=== PATIENT | male | born 1955 | race Hispanic/Latino ===

== ENCOUNTER 2016-09-04 10:55 | Emergency (ER) | payer MEDICARE, MEDICAID ==
[2016-09-04 10:56] VITALS: BMI 20.4
[2016-09-04 11:33] VITALS: RESP 18; TEMP 98.3; O2SAT 98
--- NOTE | 2016-09-04 11:54 | ED PDOC ---
Arrival/HPI - General Chief Complaint: Trauma Time Seen by Provider: 09/04/16 11:44 Historian: Patient - History of Present Illness Narrative History of Present Illness (Text): 09/04/16 11:40 A 60 year old male presents to the emergency department for evaluation after a head trauma. Patient reports last week he accidental hit is head on a metal disc and since has been experiencing intermittent headaches and nausea. Patient denies any loss of consciousness, numbness, weakness, or any other complaints at this time. PMD: Dr. Lopez Time/Duration: 1 week Symptom Onset: Sudden Symptom Course: Intermittent Quality: Other Activities at Onset: Rest Context: Home Past Medical History - Provider Review Nursing Documentation Reviewed: Yes - Infectious Disease Hx of Infectious Diseases: None - Tetanus Immunization Tetanus Immunization: Unknown - Past Medical History Past Medical History: No Previous - Renal Hx Renal Disorder: No - Psychiatric Hx Depression: No Hx Emotional Abuse: No Hx Physical Abuse: No Hx Substance Use: No - Past Surgical History Past Surgical History: No Previous - Anesthesia Hx Anesthesia: No Hx Anesthesia Reactions: No Hx Malignant Hyperthermia: No - Suicidal Assessment Feels Threatened In Home Enviroment: No Family/Social History - Physician Review Nursing Documentation Reviewed: Yes Family/Social History: Unknown Family HX Smoking Status: Heavy Smoker > 10 Cigarettes Daily Hx Alcohol Use: Yes Hx Substance Use: No Hx Substance Use Treatment: No Allergies/Home Meds Allergies/Adverse Reactions: Allergies No Known Allergies Allergy (Verified 11/01/14 09:33) Physical Exam - Physical Exam Narrative Physical Exam (Text): - Review of Systems Constitutional: Head Trauma. absent: Fatigue, Weight Change, Fevers Eyes: Normal ENT: Normal Respiratory: Normal absent: SOB, Cough, Sputum Cardiovascular: Normal absent: Chest pain, Palpitations, Syncope Gastrointestinal: Nausea. absent: Abdominal pain, Diarrhea, Vomiting Genitourinary: Normal. absent: Dysuria, Frequency, Hematuria Musculoskeletal: Normal. absent: Arthralgias, Back Pain, Neck Pain Skin: Normal Neurological: Headaches. absent: Focal Weakness Endocrine: Normal Hemo/Lymphatic: Normal Psychiatric: Normal - Physical exam Patient appears age appropriate, speaking full sentences without difficulty - Systems Exam Head: Present: Atraumatic, Normocephalic, Bilateral temporal pulses present. Pupils: Present: PERRL Extraocular Muscles: Present: EOMI Conjunctiva: Present: Normal Mouth: Present: Moist Mucous Membranes Neck: Present: Normal Range of Motion. No: MIDLINE TENDERNESS, Paraspinal Tenderness Respiratory/Chest: Present: Clear to Auscultation, Good Air Exchange. No: Respiratory Distress, Accessory Muscle Use, Tachypneic Cardiovascular: Present: Regular Rate and Rhythm, Normal S1, S2, Peripheral Pulses Present. No: Murmurs Abdomen: Present: Normal Bowel Sounds, No: Tenderness, Peritoneal Signs, Rebound, Guarding, Distention Back: Present: Normal Inspection. No: Midline Tenderness, Paraspinal Tenderness Upper Extremity: Present: Normal Inspection. No: Cyanosis, Edema Lower Extremity: Present: Normal Inspection. No: Edema Neurological: Present: GCS=15, Speech Normal, cranial nerves II through XII fully intact with no cerebellar abnormality, neuro-sensory fully intact. No focal neurological deficits. Skin: Present: Warm, Dry, Normal Color. No: Rashes Lymphatic: Present: OX3, NI, NC Psychiatric: Present: Alert, Oriented x 3, Normal Insight, Normal Concentration Vital Signs Reviewed: Yes Vital Signs Temp Pulse Resp BP Pulse Ox 09/04/16 11:27 98.3 F 68 18 130/84 98 Temperature: Afebrile Blood Pressure: Normal Pulse: Regular Respiratory Rate: Normal Appearance: Positive for: Well-Appearing, Non-Toxic, Comfortable Pain Distress: None Mental Status: Positive for: Alert and Oriented X 3 Medical Decision Making ED Course and Treatment: 09/04/16 11:40 Impression: A 60 year old male with intermittent headache and nausea after hitting his head. Patient physical examination reveal no acute findings. Patient has no neurological focal deficits. Differential Diagnosis include but are not limited to: post concussion symptoms Plan: -- Head CT -- Tylenol -- Reassess and disposition Progress Notes: 09/04/16 12:[address]: Creator : Bean Escobedo IMPRESSION: No evidence of acute intracranial hemorrhage mass effect or midline shift. Mild right maxillary sinus mucosal thickening. 09/04/16 12:50 on reevaluation, patient has no headache, no nausea,no focal neurological deficits pt states he feels comfortable being dc'd home with outpatient neurology follow up Pt states he understands to return to the ER right away for new or worsening symptoms or for inability to f/u with PMD or specialist as instructed. Patient states that he fully agrees with and understands discharge instructions. States that he agrees with the plan and disposition. Verbalized and repeated discharge instructions and plan. I have given the patient opportunity to ask any additional questions. - RAD Interpretation Radiology Orders: 09/04/16 11:45 HEAD W/O CONTRAST [CT] Stat - Medication Orders Current Medication Orders: Discontinued Medications Acetaminophen (Tylenol 325mg Tab) 975 mg PO STAT STA Stop: 09/04/16 11:45 Last Admin: 09/04/16 12:03 Dose: 975 mg - Scribe Statement The provider has reviewed the documentation as recorded by the Giovannaibe Jennifer Sepulveda Provider Scribe Attestation: All medical record entries made by the Scribe were at my direction and personally dictated by me. I have reviewed the chart and agree that the record accurately reflects my personal performance of the history, physical exam, medical decision making, and the department course for this patient. I have also personally directed, reviewed, and agree with the discharge instructions and disposition. Disposition/Present on Arrival - Present on Arrival Any Indicators Present on Arrival: No History of DVT/PE: No History of Uncontrolled Diabetes: No Urinary Catheter: No History of Decub. Ulcer: No History Surgical Site Infection Following: None - Disposition Have Diagnosis and Disposition been Completed?: Yes Diagnosis: Headache Disposition: HOME/ ROUTINE Disposition Time: 12:52 Patient Plan: Discharge Condition: GOOD Discharge Instructions (ExitCare): General Headache (ED), Concussion (ED), Post Concussion Syndrome (ED) Additional Instructions: PLEASE RETURN TO THE EMERGENCY DEPARTMENT FOR NEW OR WORSENING SYMPTOMS. RETURN RIGHT AWAY IF YOU CANNOT FOLLOW UP WITH YOUR PRIMARY CARE DOCTOR, CLINIC, OR SPECIALIST IN 1-2 DAYS. Prescriptions: Acetaminophen [Tylenol Extra Strength] 500 mg PO Q6 PRN #15 tablet PRN Reason: Pain, Moderate (4-7) Ondansetron [Zofran Odt] 4 mg PO Q6 PRN #14 odt PRN Reason: Nausea/Vomiting Referrals: Adrian Lopez Jr., MD [Primary Care Provider] - Follow up with primary Zac Whitmore MD [Staff Provider] - Follow up with primary Sathya Whitmore MD [Staff Provider] - Follow up with primary
--- NOTE | 2016-09-04 12:23 | CT ---
PROCEDURE: CT HEAD WITHOUT CONTRAST. HISTORY: [place], injury 1 week ago COMPARISON: None available. TECHNIQUE: Axial computed tomography images were obtained through the head/brain without intravenous contrast. Radiation dose: Total exam DLP = 801.61 mGy-cm. This CT exam was performed using one or more of the following dose reduction techniques: Automated exposure control, adjustment of the mA and/or kV according to patient size, and/or use of iterative reconstruction technique. FINDINGS: HEMORRHAGE: No intracranial hemorrhage. BRAIN: No mass effect or edema. No atrophy or chronic microvascular ischemic changes. VENTRICLES: Unremarkable. No hydrocephalus. CALVARIUM: Unremarkable. PARANASAL SINUSES: Mild mucosal thickening at the right maxillary sinus. MASTOID AIR CELLS: Unremarkable as visualized. No inflammatory changes. OTHER FINDINGS: None. IMPRESSION: No evidence of acute intracranial hemorrhage mass effect or midline shift. Mild right maxillary sinus mucosal thickening.
[2016-09-04 13:26] VITALS: BP 124/78; PULSE 88
== END 2016-09-04 13:27 | disposition home or self-care (01) ==
LOC: ED 10:55
DX: R51 Headache (principal)

== ENCOUNTER 2016-12-10 12:21 | Emergency (ER) | payer MEDICARE, MEDICAID ==
[2016-12-10 12:21] VITALS: BMI 20.4
[2016-12-10 12:29] VITALS: TEMP 98; O2SAT 97
--- NOTE | 2016-12-10 12:47 | ED PDOC ---
Arrival/HPI - General Chief Complaint: Headache Time Seen by Provider: 12/10/16 12:21 Historian: Patient - History of Present Illness Narrative History of Present Illness (Text): 12/10/16 12:54 A 60 year old male with no significant past medical history, presents to the Emergency department with two month duration headache. He states that he sustained a head injury against his satellite receive at his house 3 months ago , and he came to the Emergency department for further evaluation. He notes that the Head CT report was negative. He states that he wants a repeat CT scan, without labs to make sure there are no changes from the time he sustained the injury. The patient denies fevers, chills, nausea, vomiting, diarrhea, abdominal pain, chest pain, shortness of breath, dizziness or any other complaint PMD: Dr. 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) - Renal Hx Renal Disorder: No - Endocrine/Metabolic Hx Endocrine Disorders: No - Hematological/Oncological Hx Blood Disorders: No - Integumentary Hx Dermatological Disorder: No - Musculoskeletal/Rheumatological Hx Musculoskeletal Disorders: No - Gastrointestinal Hx Gastrointestinal Disorders: No - Genitourinary/Gynecological Hx Genitourinary Disorders: No - Psychiatric Hx Psychophysiologic Disorder: No Hx Substance Use: No - Past Surgical History Past Surgical History: No Previous - Surgical History Hx Eye Surgery: Yes (left eye) Other/Comment: testicular surgery as a child - Anesthesia Hx Anesthesia: No Hx Anesthesia Reactions: No Hx Malignant Hyperthermia: No - Suicidal Assessment Feels Threatened In Home Enviroment: No Family/Social History - Physician Review Nursing Documentation Reviewed: Yes Family/Social History: No Known Family HX Smoking Status: Heavy Smoker > 10 Cigarettes Daily Hx Alcohol Use: Yes Frequency of alcohol use: Socially Hx Substance Use: No Hx Substance Use Treatment: No Allergies/Home Meds Allergies/Adverse Reactions: Allergies No Known Allergies Allergy (Verified 12/10/16 12:26) Home Medications: Home Meds Medication Instructions Recorded Confirmed Ibuprofen [Motrin Tab] 800 mg PO PRN PRN 12/10/16 12/10/16 Review of Systems - Physician Review All systems were reviewed & negative as marked: Yes - Review of Systems Constitutional: absent: Fevers, Night Sweats Respiratory: absent: SOB, Cough Cardiovascular: absent: Chest Pain Gastrointestinal: absent: Abdominal Pain, Diarrhea, Nausea, Vomiting Neurological: Headache (2- month duration). absent: Dizziness Physical Exam Vital Signs Temp Pulse Resp BP Pulse Ox 12/10/16 14:10 60 18 128/81 97 12/10/16 12:25 98 F 68 16 159/88 H 97 Temperature: Afebrile Blood Pressure: Hypertensive Pulse: Regular Respiratory Rate: Normal Appearance: Positive for: Well-Appearing, Non-Toxic, Comfortable Pain Distress: None Mental Status: Positive for: Alert and Oriented X 3 - Systems Exam Head: Present: Atraumatic, Normocephalic Pupils: Present: PERRL Extroacular Muscles: Present: EOMI Conjunctiva: Present: Normal Mouth: Present: Moist Mucous Membranes Neck: Present: Normal Range of Motion Respiratory/Chest: Present: Clear to Auscultation, Good Air Exchange. No: Respiratory Distress, Accessory Muscle Use Cardiovascular: Present: Regular Rate and Rhythm, Normal S1, S2. No: Murmurs Abdomen: Present: Normal Bowel Sounds. No: Tenderness, Distention, Peritoneal Signs Back: Present: Normal Inspection Upper Extremity: Present: Normal Inspection. No: Cyanosis, Edema Lower Extremity: Present: Normal Inspection. No: Edema Neurological: Present: GCS=15, CN II-XII Intact, Speech Normal Skin: Present: Warm, Dry, Normal Color. No: Rashes Psychiatric: Present: Alert, Oriented x 3, Normal Insight, Normal Concentration Medical Decision Making ED Course and Treatment: 12/10/16 13:01 Impression: A 60 year old male with two month duration headache, and requests a repeat Head CT scan. Plan: -- Head CT -- Reassess and disposition Prior Visits: Head injury with associated headache and nausea on 09/04/16. Progress Notes: 12/10/16 13:37: Patient observed, in a bed, drinking coffee, and in no acute distress. CT HEAD WITHOUT CONTRAST Report Date : 12/10/2016 13:53:52 Dictator : Bin Boyd MD IMPRESSION: No acute intracranial abnormalities. No significant findings to account for the clinical presentation. No significant interval change compared to the prior examination(s). 12/10/16 15:03 pt remains neuro intac. observed in er, ambulatory in nad. refuses labs. advised to f/u outpt with neuro. - RAD Interpretation Radiology Orders: 12/10/16 12:53 HEAD W/O CONTRAST [CT] Stat - Medication Orders Current Medication Orders: Discontinued Medications Diphenhydramine HCl (Benadryl) 25 mg PO STAT STA Stop: 12/10/16 12:54 Last Admin: 12/10/16 13:07 Dose: 25 mg Metoclopramide HCl (Reglan) 10 mg PO STAT STA Stop: 12/10/16 12:54 Last Admin: 12/10/16 13:07 Dose: 10 mg - Scribe Statement The provider has reviewed the documentation as recorded by the Scribe Desirae Luke Provider Scribe Attestation: All medical record entries made by the Scribe were at my direction and personally dictated by me. I have reviewed the chart and agree that the record accurately reflects my personal performance of the history, physical exam, medical decision making, and the department course for this patient. I have also personally directed, reviewed, and agree with the discharge instructions and disposition. Disposition/Present on Arrival - Present on Arrival Any Indicators Present on Arrival: No History of DVT/PE: No History of Uncontrolled Diabetes: No Urinary Catheter: No History of Decub. Ulcer: No History Surgical Site Infection Following: None - Disposition Have Diagnosis and Disposition been Completed?: Yes Diagnosis: Post concussive syndrome Disposition: HOME/ ROUTINE Disposition Time: 02:00 Condition: STABLE Discharge Instructions (ExitCare): Concussion (ED), Acute Headache (ED) Additional Instructions: please follow up with specialist. you made further imaging and testing. return to er with wrosening symptoms or concerns. Prescriptions: Acetaminophen/Butalbital/Caf [Fioricet] 1 tab PO Q8 PRN #20 tab PRN Reason: Headache Referrals: Sathya Whitmore MD [Staff Provider] - Follow up with primary Zac Whitmore MD [Staff Provider] - Follow up with primary Adrian Lopez Jr., MD [Primary Care Provider] - Follow up with primary Forms: [employer] ([employer])
[2016-12-10] MEDS ORDERED: DiphenhydrAMINE 12.5 mg/5 ml LIQ UD (5 ml) PO STA (12:53)
--- NOTE | 2016-12-10 13:55 | CT ---
PROCEDURE: CT HEAD WITHOUT CONTRAST. HISTORY: Headache COMPARISON: 09/04/2016. TECHNIQUE: Axial computed tomography images were obtained through the head/brain without intravenous contrast. Radiation dose: Total exam DLP = 822.62 mGy-cm. This CT exam was performed using one or more of the following dose reduction techniques: Automated exposure control, adjustment of the mA and/or kV according to patient size, and/or use of iterative reconstruction technique. FINDINGS: HEMORRHAGE: No intracranial hemorrhage. BRAIN: No mass effect or edema. No atrophy or chronic microvascular ischemic changes. VENTRICLES: Unremarkable. No hydrocephalus. CALVARIUM: Unremarkable. PARANASAL SINUSES: Unremarkable as visualized. No significant inflammatory changes. MASTOID AIR CELLS: Unremarkable as visualized. No inflammatory changes. OTHER FINDINGS: None. IMPRESSION: No acute intracranial abnormalities. No significant findings to account for the clinical presentation. No significant interval change compared to the prior examination(s).
[2016-12-10 14:10] VITALS: BP 128/81; PULSE 60; RESP 18
== END 2016-12-10 14:11 | disposition home or self-care (01) ==
LOC: ED 12:21
DX: F07.81 Postconcussional syndrome (principal)

== ENCOUNTER 2018-09-15 16:03 | Emergency (ER) | payer MEDICARE, MEDICAID ==
[2018-09-15 16:17] VITALS: O2SAT 99; BMI 19.4
[2018-09-15] MEDS ORDERED: Lidocaine 5% Patch TD STA (17:01)
--- NOTE | 2018-09-15 18:04 | ED PDOC ---
Arrival/HPI - General Chief Complaint: Lower Extremity Problem/Injury Time Seen by Provider: 09/15/18 16:11 Historian: Patient - History of Present Illness Narrative History of Present Illness (Text): 09/15/18 18:05 A 62 year old male who presents to the ED complaining of severe low back pain radiating to left leg for the past 3 days. Patient notes pain started when he was moving some heavy objects. Patient describes left leg as being "tinglish" but denies any leg weakness. Patient also denies any fevers, chills, headache, dizziness, chest pain, shortness of breath, dyspnea on exertion, cough, abdominal pain, nausea, vomiting, diarrhea, back pain, neck pain, urinary symptoms, urinary or bowel incontinence or retentions, or any other complaint. 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) - Renal Hx Renal Disorder: No - Endocrine/Metabolic Hx Endocrine Disorders: No - Hematological/Oncological Hx Blood Disorders: No - Integumentary Hx Dermatological Disorder: No - Musculoskeletal/Rheumatological Hx Musculoskeletal Disorders: No - Gastrointestinal Hx Gastrointestinal Disorders: No - Genitourinary/Gynecological Hx Genitourinary Disorders: No - Psychiatric Hx Psychophysiologic Disorder: No Hx Substance Use: No - Past Surgical History Past Surgical History: No Previous - Surgical History Hx Eye Surgery: Yes (left eye) Other/Comment: testicular surgery as a child - Anesthesia Hx Anesthesia: No Hx Anesthesia Reactions: No Hx Malignant Hyperthermia: No - Suicidal Assessment Feels Threatened In Home Enviroment: No Family/Social History - Physician Review Nursing Documentation Reviewed: Yes Family/Social History: No Known Family HX Smoking Status: Heavy Smoker > 10 Cigarettes Daily Hx Alcohol Use: Yes Hx Substance Use: No Hx Substance Use Treatment: No Allergies/Home Meds Allergies/Adverse Reactions: Allergies No Known Allergies Allergy (Verified 12/10/16 12:26) Review of Systems - Physician Review All systems were reviewed & negative as marked: Yes - Review of Systems Genitourinary Male: absent: Urinary Output Changes Musculoskeletal: Back Pain Physical Exam Vital Signs Reviewed: Yes Vital Signs Temp Pulse Resp BP Pulse Ox 09/15/18 16:16 98.0 F 97 H 18 120/84 99 Temperature: Afebrile Blood Pressure: Normal Pulse: Regular Respiratory Rate: Normal Appearance: Positive for: Well-Appearing, Non-Toxic, Comfortable Pain Distress: Mild Mental Status: Positive for: Alert and Oriented X 3 - Systems Exam Head: Present: Atraumatic, Normocephalic Pupils: Present: PERRL Extroacular Muscles: Present: EOMI Conjunctiva: Present: Normal Respiratory/Chest: Present: Clear to Auscultation, Good Air Exchange. No: Respiratory Distress, Accessory Muscle Use Cardiovascular: Present: Regular Rate and Rhythm, Normal S1, S2. No: Murmurs Back: Present: Paraspinal Tenderness (at lumbar spine area + left posterior buttocks), Pain with Leg Raise (+ at 30 degrees) Neurological: No: Other (Sensory or motor deficits) Psychiatric: Present: Alert, Oriented x 3, Normal Insight, Normal Concentration Medical Decision Making ED Course and Treatment: 09/15/18 18:14 Impression: A 62 year old male who presents to the ED for back pain radiating to left leg for the past 3 days. Plan: -- Lidoderm -- Toradol -- Valium -- LS Spine -- Reassess and disposition Prior Visits: Notes and results from previous visits were reviewed. Patient was last seen in the emergency department on Progress Notes: X-Ray shows degenerative joint disease. Reassessment Condition: Re-examined, Improving,but remains with symptoms (ambulatory, no neuro deficit) - RAD Interpretation Radiology Orders: 09/15/18 17:01 LS SPINE AP/LAT [RAD] Stat - Medication Orders Current Medication Orders: Discontinued Medications Diazepam (Valium) 5 mg PO STAT STA Stop: 09/15/18 17:02 Last Admin: 09/15/18 17:18 Dose: 5 mg Ketorolac Tromethamine (Toradol) 60 mg IM STAT STA Stop: 09/15/18 17:02 Last Admin: 09/15/18 17:18 Dose: 60 mg MAR Pain Assessment Document 09/15/18 17:18 [email or web address] (Rec: 09/15/18 17:19 [email or web address] [id number]) Pain Reassessment Is this a pain reassessment? No Sleep Is patient sleeping during reassessment? No Presence of Pain Presence of Pain Yes Pain Scale Used Protocol: PSCALES Pain Scale Used Numeric Location Left, Right or Bilateral Left Upper or Lower Lower Pain Location Body Site Back Description Description Constant Intensity of Pain at present 8 Pain Behavior Facial Grimacing Aggravating Factors Changing Position Alleviating Factors/Management Medication Techniques Alleviating Factors Medication IM Administration Charges Document 09/15/18 17:18 [email or web address] (Rec: 09/15/18 17:19 [email or web address] [id number]) Injection Site MAR Injection Site Left Gluteus Keith Charges for Administration # of IM Administrations 1 Lidocaine (Lidoderm) 1 ea TD STAT STA Stop: 09/15/18 17:02 Last Admin: 09/15/18 17:18 Dose: 1 ea MAR Transdermal Patch Site Document 09/15/18 17:18 [email or web address] (Rec: 09/15/18 17:18 [email or web address] [id number]) Transdermal Patch Site Transdermal Patch Site Left Lower Back - Scribe Statement The provider has reviewed the documentation as recorded by the Fozia Lopez Provider Scribe Attestation: All medical record entries made by the Giovannaibjustin were at my direction and personally dictated by me. I have reviewed the chart and agree that the record accurately reflects my personal performance of the history, physical exam, medical decision making, and the department course for this patient. I have also personally directed, reviewed, and agree with the discharge instructions and disposition. Disposition/Present on Arrival - Present on Arrival Any Indicators Present on Arrival: No History of DVT/PE: No History of Uncontrolled Diabetes: No Urinary Catheter: No History of Decub. Ulcer: No History Surgical Site Infection Following: None - Disposition Have Diagnosis and Disposition been Completed?: Yes Diagnosis: Lumbar radiculopathy, acute Disposition: HOME/ ROUTINE Disposition Time: 18:59 Patient Plan: Discharge Condition: IMPROVED Discharge Instructions (ExitCare): Radiculopathy (DC) Additional Instructions: Follow up with your PMD within 1-2days. Return to ED if feel worse. Prescriptions: Lidocaine 5% [Lidoderm] 1 patch TP DAILY #30 patch Ibuprofen [Motrin Tab] 600 mg PO Q8 #30 tab Gabapentin [Neurontin] 300 mg PO QPM #10 cap Methocarbamol [Robaxin-750] 750 mg PO TID #30 tab Referrals: Adrian Lopez Jr., MD [Primary Care Provider] - Follow up with primary Forms: [employer] ([place])
[2018-09-15 19:05] VITALS: PULSE 90
[2018-09-15 19:06] VITALS: BP 122/79; RESP 18; TEMP 98.1
--- NOTE | 2018-09-16 10:41 | RAD ---
Date of service: 09/15/2018 PROCEDURE: Radiographs of the Lumbar Spine. HISTORY: L LBP, radiating to the L leg COMPARISON: No prior. TECHNIQUE: Two views obtained. FINDINGS: BONES: Normal alignment. No listhesis. No fracture. DISC SPACES: Unremarkable. OTHER FINDINGS: None. IMPRESSION: Unremarkable radiographs of the lumbar spine.
== END 2018-09-15 19:06 | disposition home or self-care (01) ==
LOC: ED 16:03
DX: M54.16 Radiculopathy, lumbar region (principal); F17.210 Nicotine dependence, cigarettes, uncomplicated
CPT/HCPCS: 72100; 96372; 99283; J1885